=== PATIENT | male | born 1995 | race Hispanic/Latino ===

== ENCOUNTER 2022-04-10 02:36 | Emergency (ER) | payer SELFPAY ==
[~2022-04-10] VITALS: Ht 165.1 cm; Wt 81.7 kg
== END 2022-04-10 04:55 | disposition home or self-care (01) ==
LOC: ED 02:36
PROC: 0HQ1XZZ Repair Face Skin, External Approach (ICD-10-PCS; principal; 2022-04-10)
DX: S02.40EA Zygomatic fracture, right side, initial encounter for closed fracture (principal); S01.81XA Laceration without foreign body of other part of head, initial encounter; Z91.030 Bee allergy status; Z88.5 Allergy status to narcotic agent; Y04.2XXA Assault by strike against or bumped into by another person, initial encounter
CPT/HCPCS: 12011; 70450; 70486; 72125; 99284-25